=== PATIENT | female | born 1950 | race Caucasian/White ===

== ENCOUNTER 2024-06-08 13:02 | Emergency (ER) | payer MEDICARE, OTHER, SELFPAY ==
[2024-06-08 13:19] VITALS: BP 141/85
[2024-06-08 13:43] LABS: % Basophils 0.7 % (0-2); % Eosinophils 1.2 % (0-6); % Immature Granulocytes 0.3 % (0-0.5); % Lymphocytes 26.3 % (20.5-51.1); % Monocytes 7.1 % (1.7-9.3); % Neutrophils 64.4 % (42.2-75.2); Absolute Basophils 0.1 10^3/uL (0-0.2); Absolute Eosinophils 0.1 10^3/uL (0-0.7); Absolute Lymphocytes 2.6 10^3/uL (1.2-3.4); Absolute Monocytes 0.7 10^3/uL (0.1-0.6); Absolute Neutrophils 6.4 10^3/uL (1.4-6.5); Hemoglobin 14.2 g/dL (12.0-16.0); Mean Corp Hgb Conc. 33.8 g/dL (33.0-37.0); Mean Corpuscular Hgb 28.4 pg (27.0-31.0); Mean Platelet Volume 9.2 fL (7.4-10.4); Nucleated Red Blood Cells % 0 %; Platelet Count 262 10^3/uL (130-400); Red Cell Dist. Width 12.7 % (11.5-14.5)
[2024-06-08 13:57] LABS: ALT (SGPT) 26 U/L (0-35); AST (SGOT) 27 U/L (14-36); Alkaline Phosphatase 67 U/L (38-126); Blood Urea Nitrogen 20 mg/dl (7-17); Calcium 10.2 mg/dl (8.4-10.2); Carbon Dioxide 26 mmol/L (22-30); Chloride 101 mmol/L (98-107); Glucose 115 mg/dl (70-99); Potassium 3.7 mmol/L (3.5-5.1); Sodium 139 mmol/L (135-145); Total Bilirubin 0.8 mg/dl (0.2-1.3); Total Protein 7.9 g/dl (6.3-8.2); eGFR > 60.00
[2024-06-08 14:07] LABS: Troponin I < 0.012 ng/ml
--- NOTE | 2024-06-08 14:45 | ED.GENMED ---
History of Present Illness
General
Chief Complaint: Chest Pain
Source: patient
Exam Limitations: none
Time Seen by Provider: 06/08/24 14:05
Nursing documentation reviewed up to this point in time: agreed with
History of Present Illness
History of Present Illness:
73-year-old female with history HTN, HLD, breast cancer with lumpectomy, GERD reports for the past 3 days she has had mid chest pain 2/10 to 5/10 off and on, with burping a lot more than usual, the chest pain improves after burping and then slowly
builds up again, the pain and burping are worse after eating, also fleeting moments of lightheadedness, periods of pain down each arm off and on. Denies N/V/D/C. Denies fever or chills. Denies shortness of breath. Has had nasal stuffiness
States she stopped taking her Prilosec a while ago and started it back up again 3 days ago 20 mg once a day and then took 40 mg yesterday and has had none today.
Past History
Past History
ED Past Medical History: Cancer (Breast cancer w lumpectomy and radiation), HTN and Hypercholesterolemia
Social History
Tobacco: Non-smoker
Alcohol: None
Personal:
Living: with family
Review of Systems
Review of Systems
Allergies reviewed?: Yes
All Other Systems: ROS reviewed and negative except as documented in HPI and ROS
Constitutional: Denies fever, fatigue or chills
EENT: Reports other (Stuffiness with postnasal drip); Denies sore throat
Respiratory: Reports no symptoms
Cardiac: Reports chest pain; Denies diaphoresis, palpitations or syncope
ABD/GI: Denies abdominal pain, nausea, vomiting or diarrhea
: Reports no symptoms
Musculoskeletal: Reports no symptoms
Skin: Reports no symptoms
Neurological: Reports dizzy (Fleeting episodes of lightheadedness past couple of days.); Denies headache, weakness or numbness
Phy Exam
Physical Exam
Physical Exam:
GENERAL: No acute distress. A&Ox3.
CONSTITUTIONAL: Afebrile.
EYES: clear, conjunctivae normal
ENMT: moist mucus membranes, pharynx normal
RESPIRATORY: Regular respirations, nonlabored, lungs clear.
CARDIOVASCULAR: Regular rate and rhythm, no murmurs, no rubs.
GI: Soft, nontender, normal BS
MUSCULOSKELETAL: Moves with ease. Well perfused.
SKIN: Warm, dry, pink
PSYCH: Normal mood and affect. Well kept, interactive and appropriate
NEUROLOGIC: Awake, alert and oriented. No focal neurological deficits
Scores
Heart Score for Chest Pain Patients
STEMI patient?: Not applicable
Course
Orders/Labs/Results
Orders:
Orders
06/08/24 13:03
Electrocardiogram (*1) Urgent
Reason for Study: Chest Pain
EKG- Treatment ONCE
06/08/24 13:26
CXR2 [CR Chest - 2 Views ] Urgent
Comment:
Reason For Exam: chest pain
06/08/24 13:32
Complete Blood Count/With Diff Urgent
Comprehensive Metabolic Panel Urgent
Troponin I Urgent
06/08/24 14:58
COVID-19 Antigen Urgent
Source: Nasal Swab
Influenza A+B Rapid Molecular Urgent
CARLITOS Source: Nasal Swab
Specimen Description:
Abnormal Lab Results
06/08/24
13:32
Absolute Monos (auto) 0.7 H 10^3/uL
(0.1-0.6)
BUN 20 H mg/dl
(7-17)
Glucose 115 H mg/dl
(70-99)
06/08/24 13:32
06/08/24 13:32
Vital Signs
Initial and Last Documented VS:
Initial Vital Signs
Temp Pulse Resp BP Pulse Ox
99.1 F 79 17 141/85 99
06/08/24 13:19 06/08/24 13:19 06/08/24 13:19 06/08/24 13:19 06/08/24 13:19
Last Documented Vital Signs
Temp Pulse Resp BP Pulse Ox
99.1 F 81 17 141/85 98
06/08/24 13:19 06/08/24 14:58 06/08/24 14:58 06/08/24 13:19 06/08/24 14:58
MDM/Problems Addressed
Differential Diagnosis Includes:
ID, angina, GERD
MDM/Problems Addressed:
73-year-old female with history HTN, HLD, breast cancer with lumpectomy, GERD reports for the past 3 days she has had mid chest pain 2/10 to 5/10 off and on, with burping a lot more than usual, the chest pain improves after burping and then slowly
builds up again, the pain and burping are worse after eating, also fleeting moments of lightheadedness, periods of pain down each arm off and on. Denies N/V/D/C. Denies fever or chills. Denies shortness of breath. Has had nasal stuffiness and PND
States she stopped taking her Prilosec a while ago and started it back up again 3 days ago 20 mg once a day and then took 40 mg yesterday and has had none today.
Afebrile, NAD
EKG NSR with left ventricular hypertrophy and widened QRS, no previous EKG available
2:00 PM:
CBC normal
CMP with no clinically significant abnormality
Troponin normal
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 Major in [place].
*EKG
EKG Intrepretation Date: 06/08/24
Interpretation: abnormal
Comparison EKG: no comparison EKG present
Heart Rate: 81
Rate: normal
Rhythm: sinus
[place]: normal axis
Interval: normal interval
QRS Pattern: wide non-specific and left vent hypertrophy
Ischemia: no ischemia
*Critical Care Note
Total Time (30-74mins, 75-104mins- exclusive of procedures): Not Applicable
ED Attending Note
-
Portions of this chart may have been created with voice recognition software.� Occasional wrong word or��sound alike� substitutions may have occurred due to the inherent limitations of voice recognition software.
Discharge Plan
Departure
Patient Disposition: Home (Routine Discharge)
Date of Disposition: 06/08/24
Time of Disposition: 15:27
Patient with high blood pressure during this ER visit?: No
Condition: Good
Discharge Problem:
Atypical chest pain, GERD (gastroesophageal reflux disease)
Instructions: Chest Pain That Is Not Caused by the Heart (DC), Acid Reflux and GERD in Adults (DC)
Referrals:
Tc Major Senior Consulting Manager [Other] - Call in 1-3 days for appt
Andrea Cui MD [Family Provider] -
Activity Restrictions/Additional Instructions:
As we discussed, call your mold release worker Dr. Major and make next available appointment within the next few weeks. Inform that you are here in the ER and we recommended you follow-up within the next 1 to 2 weeks
Take copies of all your labs and your EKG report with you.
Interventions
Interventions:
*Risk Screen - Suicide Last Done: 06/08/24 13:22
*Neglect/Abuse Screening Last Done: 06/08/24 13:22
ED- Fall Risk Assessment Last Done: 06/08/24 14:58
*Nursing Disposition Last Done: 06/08/24 15:53
ED- Cardiac Assessment Last Done: 06/08/24 14:58
Discharge Date and Time
Discharge Date/Time: 06/08/24 15:53
Print Language: BELARUSIAN
[2024-06-08 15:28] LABS: COVID-19 Antigen Negative (Negative)
== END 2024-06-08 15:53 | disposition home or self-care (01) ==
LOC: EMR 13:02
PROVIDERS: Registered Nurse; EMERGENCY PHYSICIAN Emergency Medicine; FAMILY PHYSICIAN Family Medicine
DX: R07.89 Other chest pain (principal); I10 Essential (primary) hypertension; E78.00 Pure hypercholesterolemia, unspecified; K21.9 Gastro-esophageal reflux disease without esophagitis; Z11.52 Encounter for screening for COVID-19
CPT/HCPCS: 99285; 71046; 80053; 84484; 85025; 87502; 87811; 93005